=== PATIENT | male | born 1935 | race Caucasian/White ===

== ENCOUNTER 2023-02-19 05:47 | Day surgery (SDC) | payer MEDICARE, SELFPAY ==
[2023-02-05 13:44] VITALS: BMI 27.2
--- NOTE | 2023-02-18 20:10 | P.PNAN_ITS ---
Anes - Initial Pre Proc Eval Procedure: Operation Date: 02/19/23 07:30 Proposed Procedures p Diagnostic Colonoscopy - Moise Isaac MD Date/Time: 02/18/23 20:10 Surgeon: Moise Isaac MD Pre Op Diagnosis: Personal History of Colon Polyps Patient Data Age: 87 Gender: M Height: 1.7 m Weight: 79 kg Allergies Allergy/AdvReac Type Severity Reaction Status Date / Time aspirin AdvReac Unknown HEADACHE Verified 02/19/23 06:19 Home Medications Medication Instructions Recorded Confirmed Type atorvastatin 40 mg tablet 40 mg PO DAILY #90 tabs 09/22/22 02/06/23 Rx amlodipine 2.5 mg tablet 2.5 mg PO DAILY #90 tabs 12/23/22 02/06/23 Rx triamcinolone acetonide 0.1 % 1 applic topical BID #30 grams 02/03/23 02/19/23 Rx topical cream Patient hx anesthesia problems: none Family hx anesthesia problems: none Results Review: All pre-operative results and documents have been reviewed as part of the pre- operative evaluation. [facility] Past Medical History Medical History (Updated 02/18/23 @ 20:15 by Carlo Weber DO) Essential (primary) hypertension Hyperlipidemia Onychomycosis Surgical History Surgical History (Updated 02/18/23 @ 20:15 by Carlo Weber DO) History of cholecystectomy Family History Family History Father Diabetes mellitus, Onset Age: 80 Grandparent Diabetes mellitus Family history unknown Mother Family history of arthritis, Onset Age: 80 Sibling Family history of malignant neoplasm of kidney Social History Social History Smoking status: Never smoker Second hand tobacco smoke exposure: No Alcohol intake: current Drinks per week: 2 Substance use: never Substance use type: does not use Lack of Transportation: No Lack of Food: Never True Current Housing: I Have Housing Concerned About Future Housing: No Difficulty Paying Gas/Electric Bills: No Difficulty Paying for Meds: No Currently Unemployed: No Education: Decline to Answer Difficulty w/ Childcare or Family Care: No Occupation/Education: retired Gender identity (if verbalized by the patient): Male Spiritual care concerns: No Anes - Eval Final PreProcedure Day of Procedure 02/18/23 20:10 Patient weight: overweight Heart: regular rate and rhythm Lungs: clear to auscultation Airway: Mallampati scale class II Neurological: alert and oriented Last oral intake: >/= 8 hours ASA classification: II Emergent: no Anesthetic plan: proceed Anesthesia type and monitoring: general GIVS and standard monitoring Results Review: All pre-operative results and documents have been reviewed as part of the pre- operative evaluation. Informed Consent: The patient's anesthetic plan and its attendant risks and benefits were discussed with the patient/family/POA. Questions were solicited and answers provided to the satisfaction of the patient/family/POA.
[2023-02-19 06:22] VITALS: BP 164/91; PULSE 113; RESP 18; TEMP 37.2; O2SAT 100; BMI 26.4
[2023-02-19] MEDS: LACTATED RINGERS 1,000 ML 150 ML IV CONT (06:25)
--- NOTE | 2023-02-19 07:19 | PM.HPGS ---
History of Present Illness History of Present Illness Consent: Risks, benefits, and alternatives have been discussed and questions answered. Patient agrees to proceed with procedure. Chief complaint: Personal History of Colon Polyps Narrative: Francisco Yoon is a 87 year old male presents for screening colonoscopy. Patient has a prior history of colon polyps. In 2019 in adenomatous colon polyp was removed from the colon. Patient reports normal Bowel movements. He has no pain or bleeding. Patient denies abdominal pain. Family history is noncontributory. Review of Systems Review of Systems: review of systems is noncontributory [facility] Past Medical History Medical History (Updated 02/19/23 @ 07:25 by Moise Isaac MD) Essential (primary) hypertension Hyperlipidemia Onychomycosis Surgical History Surgical History (Updated 02/18/23 @ 20:15 by Carlo Weber DO) History of cholecystectomy Family History Family History Father Diabetes mellitus, Onset Age: 80 Grandparent Diabetes mellitus Family history unknown Mother Family history of arthritis, Onset Age: 80 Sibling Family history of malignant neoplasm of kidney Social History Social History Smoking status: Never smoker Second hand tobacco smoke exposure: No Alcohol intake: current Drinks per week: 2 Substance use: never Substance use type: does not use Lack of Transportation: No Lack of Food: Never True Current Housing: I Have Housing Concerned About Future Housing: No Difficulty Paying Gas/Electric Bills: No Difficulty Paying for Meds: No Currently Unemployed: No Education: Decline to Answer Difficulty w/ Childcare or Family Care: No Occupation/Education: retired Gender identity (if verbalized by the patient): Male Spiritual care concerns: No Meds Home Medications and Allergies Home Medications Medication Instructions Recorded Confirmed Type atorvastatin 40 mg tablet 40 mg PO DAILY #90 tabs 09/22/22 02/06/23 Rx amlodipine 2.5 mg tablet 2.5 mg PO DAILY #90 tabs 12/23/22 02/06/23 Rx triamcinolone acetonide 0.1 % 1 applic topical BID #30 grams 02/03/23 02/19/23 Rx topical cream Allergies Allergy/AdvReac Type Severity Reaction Status Date / Time aspirin AdvReac Unknown HEADACHE Verified 02/19/23 06:19 Vital Signs Vital Signs - 24 hr 02/19/23 06:22 Temperature 99 F Pulse Rate 113 H Respiratory Rate 18 Blood Pressure 164/91 H Pulse Oximetry 100 Oxygen Delivery Room Air Exam Narrative: physical exam reveals patient to be alert, vital signs are stable. HEENT exam is unremarkable. Patient is anicteric. lungs are clear to auscultation and percussion. Heart is without murmur or extra sounds. Abdomen bowel sounds are present soft nontender with no organomegaly. Digital external rectal exam is normal Assessment and Plan Assessment and plan (1) History of colon polyps: Code(s): Z86.010 - Personal history of colonic polyps Status: Acute Assessment and Plan: the patient has a history of colon polyps 5 years ago. Plan for a Colonoscopy at this time.
[2023-02-19 08:01] VITALS: BP 100/89; PULSE 76; RESP 14; O2SAT 98
[2023-02-19 08:11] VITALS: BP 123/68; PULSE 72; RESP 16; O2SAT 99
[2023-02-19 08:21] VITALS: BP 137/72; PULSE 80; RESP 16; O2SAT 99
--- NOTE | 2023-02-19 08:33 | SUR.PHASEII ---
0825; PT DRESSED AND DRINKING COFFEE. SM AMT BLOODY DRAINAGE FROM RECTUM. DISCUSSED ANAL STRICTURE, DILATED. PT DENIES PAIN. WAITING ON PHYSICIAN DISCHARGE PAPERS.
--- NOTE | 2023-02-19 13:51 | WPDANESPN ---
Anes - Prog Note Post-Op Date/Time: 02/19/23 13:51 Cardiovascular status: normal Respiratory status: normal Airway patency: baseline Mental status: baseline Post-Op hydration status: normal Vital Signs: Last Vital Signs Temp 37.2 C 02/19/23 06:22 Pulse 80 02/19/23 08:21 Resp 16 02/19/23 08:21 BP 137/72 02/19/23 08:21 Pulse Ox 99 02/19/23 08:21 O2 Del Method Room Air 02/19/23 08:21 Pain Score (VAS): 0 I/O: Intake & Output 02/18/23 02/19/23 02/19/23 23:59 07:59 15:59 Intake Total 400 100 Balance 400 100 Post-procedural complaints: none Patient Feedback: Patient satisfied with anesthetic care. Other Findings: Patient vital signs back to baseline. Patient denies nausea and vomiting. Patient's pain under control. Patient OK for discharge.
== END 2023-02-19 08:53 | disposition home or self-care (01) ==
PROVIDERS: PCP Family Medicine; Visit Provider Internal Medicine Gastroenterology
PROC: 0DJD8ZZ Inspection of Lower Intestinal Tract, Via Natural or Artificial Opening Endoscopic (ICD-10-PCS; CPT 45378; principal; 2023-02-19 07:30)
DX: Z86.010 Personal history of colon polyps (principal); D12.2 Benign neoplasm of ascending colon; D12.5 Benign neoplasm of sigmoid colon; K57.30 Diverticulosis of large intestine without perforation or abscess without bleeding; K64.8 Other hemorrhoids
CPT/HCPCS: 45385

== ENCOUNTER 2023-02-19 07:00 | Outpatient (NON) | payer MEDICARE, SELFPAY | END 2023-02-19 07:01 | disposition home or self-care (01) | PROVIDERS: PCP Family Medicine; Visit Provider Internal Medicine Gastroenterology | DX: Z86.010 Personal history of colon polyps (principal) | CPT/HCPCS: 88305 ==